=== PATIENT | male | born 1985 | race Caucasian/White ===

== ENCOUNTER 2022-06-15 10:30 | Day surgery (SDC) | payer OTHER ==
[~2022-06-15] VITALS: Ht 180.3 cm; Wt 118.0 kg
[2022-06-15 10:41] VITALS: BP 156/94; PULSE 58; TEMP 97.8
[2022-06-15] MEDS ORDERED: ZOLOFT 100MG100 MG PO (10:46)
[2022-06-15] MEDS ORDERED: PRINIVIL20 MG PO (10:46)
[2022-06-15 12:30] VITALS: BP 108/93; PULSE 74; TEMP 97.7
[2022-06-15 12:45] VITALS: BP 133/78; PULSE 82
[2022-06-15 12:55] VITALS: BP 126/80; PULSE 60
--- NOTE | 2022-06-15 13:05 | NUR ---
1230- PATIENT RETURNS TO [facility] VIA CART. PT AWAKE AND ALERT. RESPIRATIONS UNLABORED. AMBULATED TO RECLINER CHAIR WITH 2:1 SBA. PT DENIES NAUSEA OR ABDOMINAL PAIN. HOOKED UP TO MONITOR AND VS OBTAINED. CALL LIGHT AT SIDE AND PRESENT. 1237- PATIENT TOLERATING SPRITE AND TWO MUFFINS WITHOUT NAUSEA. 1246- DR. PALENCIA IN ROOM SPEAKING WITH PATIENT. 1258- D/C INSTRUCTIONS REVIEWED WITH PATIENT. PT VERBALIZED UNDERSTANDING AND A COPY OF INSTRUCTIONS PROVIDED IN D/C FOLDER. 1300- PATIENT DRESSES SELF. 1305- PATIENT DISCHARGED FROM UNIT VIA W/C TO A PERSONAL VEHICLE. PT LEFT HOSPITAL IN STABLE CONDITION.
[2022-06-15 13:29] VITALS: BP 150/87; PULSE 76
== END 2022-06-15 13:05 | disposition home or self-care (01) ==
LOC: SDCO 10:30
DX: R93.3 Abnormal findings on diagnostic imaging of other parts of digestive tract (principal); R19.7 Diarrhea, unspecified; R31.21 Asymptomatic microscopic hematuria; Z80.0 Family history of malignant neoplasm of digestive organs; Z87.891 Personal history of nicotine dependence
CPT/HCPCS: J2704; J7120